=== PATIENT | male | born 1955 | race Caucasian/White ===

== ENCOUNTER 2024-04-19 17:27 | Emergency (ER) | payer MEDICARE, MEDICAID, SELFPAY ==
--- NOTE | 2024-04-19 17:40 | PC.CC ---
ASWStacie responded to code blue and provided emotional support to patient's son Guicho who was placed in the consultation room. Patient's son reports the patient was having difficulty breathing and SOB. ASW provided update to medical staff.
--- NOTE | 2024-04-19 17:52 | EDNOTE_ITS ---
ED CPR RME/HPI General Chief Complaint: Cardiac Arrest/CPR Stated Complaint: CODE BLUE Time Seen by Provider: 04/19/24 17:38 Arrival date/time: 04/19/24 17:27 RME / HPI RME / HPI narrative: This section includes all my notes and documentations, including HPI, PE, and ED course.? Leonardo Butt MD HPI: 68 year old male here unresponsive with no spontaneous respiration and no pulse. Son drove him here. At home, he started complaining of SOB. Son helped him into the car and drove here. The drive was 15-20 minutes. Patient (dad) became unresponsive at the start of the drive. Didn't call EMS because it would delay care. ROS: Can't obtain from the patient due to current clinical condition. Physical Exam: General:? Unresponsive. Eyes:? Pupils fixed and dilated. Heart:? No cardiac activity. Lungs:? No spontaneous respiration. Abdomen:? Soft. Skin:? Peripheral cyanosis noted. Neuro:? GCS 3. ACLS protocol followed, including 2-minute cycles of chest compressions and Epinephrine 1 mg every 3-5 minutes when indicated. Patient intubated at the start without interrupting chest compressions. Endotracheal Intubation Procedure Note: The patient was placed on a panel monitor including continuous pulse oximetry. Using a 4 laryngoscope and a size 8 endotracheal tube with stylet, the patient was intubated on the first attempt via GlideScope. The stylet was removed and cuff balloon was inflated. Appropriate endotracheal tube position was confirmed by direct visualization of vocal cord passage, fogging of the tube, CO2 colormetric indicator and symmetric breath sounds. The tube was secured at 22 cm at the lips. Post intubation chest x-ray pending. At 1740 with no signs of life and no objections, aborted our resuscitation effort. Rest in peace Mr. Hernandez. Leonardo Butt MD Related Data Home Medications ?Medication ?Instructions ?Recorded ?Confirmed tamsulosin 0.4 mg capsule 0.4 mg PO DAILY 11/17/17 01/14/23 aspirin 325 mg tablet 325 mg PO QDAY 01/14/23 01/14/23 atorvastatin 80 mg tablet 80 mg PO QPM 01/14/23 01/14/23 carvedilol 3.125 mg tablet 3.125 mg PO BID 01/14/23 01/14/23 chlorthalidone 25 mg tablet 25 mg PO QDAY 01/14/23 01/14/23 clopidogrel 75 mg tablet 75 mg PO QDAY 01/14/23 01/14/23 Allergies Allergy/AdvReac Type Severity Reaction Status Date / Time No Known Allergies Allergy Verified 01/17/23 12:26 Course Quality Measures none Cardiac Arrest / CPR Patient data External records reviewed:: [facility] previous records Clinical information provided by:: family Social determinants that could affect healthcare access:: none Patient has the following chronic illnesses:: HTN and Hyperlipidemia and COPD How is presenting disease/condition affected by chronic disease/condition?: exacerbated by Evaluation data The following diagnostics were reviewed and interpreted by me:: other (specify) (no diagnostic tests ordered) Lab and/or radiology exams considered but not ordered:: none Interpretation Summary: patient prior to diagnostic tests Medications / Prescriptions Medications or Prescriptions considered but not ordered:: none Medication administrations:: see chart Consultations Consultation(s) initiated? (list below): No Diagnosis Cardiac arrest differential diagnosis: acute massive pulmonary embolism, acute respiratory failure, acute myocardial infarction, cardiac arrest and sudden cardiac Most likely diagnosis given after review of the tests above:: uncertain Admission Indicated Admission indicated?: not indicated Explain why admission is indicated or not indicated:: patient Admission Request Was there a request for admission?: No Disposition Plan Disposition Plan: other (specify) (patient ) Discharge Plan Plan Patient Disposition: Prescriptions/Referrals Referrals: Boom Alvares MD [Primary Care Provider] - In 1 week Problem List Clinical Impression: Cardiac arrest Patient/Caregiver Discharge Instructions Print Language: Italian
--- NOTE | 2024-04-19 19:38 | PC.NURSE ---
PT ARRIVED AROUND 1727 IN FRONT OF THE ED, BIB SON, UPON ARRIVAL TO VEHICLE PT WAS UNRESPONSICE, INFO SPECIALIST PERFORMING CPR. MARIELA ELIZABETH CALLED, STAFF RESPONDED. GOT PT ON TO CRIS AND CARRIED OUT THE CODE BLUE (SEE CODE SHEET). [employer] CALLED [facility] PET TRAINER. FAMILY AT BEDSIDE.
== END 2024-04-19 19:16 | disposition expired ==
PROVIDERS: Emergency Provider Emergency Medicine; PCP Family Medicine
DX: I46.9 Cardiac arrest, cause unspecified (principal)
CPT/HCPCS: 31500; 92950; 99285; J0171